=== PATIENT | male | born 1950 ===

== ENCOUNTER 2021-11-20 07:53 | Day surgery (SDC) | payer OTHER ==
[~2021-11-20] VITALS: Ht 172.7 cm; Wt 72.6 kg
[~2021-11-20 07:53] MED LIST: ATORVASTATIN CA40 MG PO; TAMS0.4C PO
== END 2021-11-20 19:20 | disposition home or self-care (01) ==
LOC: CIR.AMB 07:53
PROVIDERS: ATTEND Surgery
DX: K40.20 Bilateral inguinal hernia, without obstruction or gangrene, not specified as recurrent (principal); E78.5 Hyperlipidemia, unspecified; Z86.16 Personal history of COVID-19; Z20.822 Contact with and (suspected) exposure to COVID-19
CPT/HCPCS: 49650; C1781

== ENCOUNTER 2021-11-29 19:07 | Inpatient (IN) | payer OTHER ==
[~2021-11-29] VITALS: Ht 172.7 cm; Wt 72.6 kg
--- NOTE | 2021-11-29 19:35 | NUR ---
SE RECIBE PTE MASCULINO DE 71 ANOS ALERTA Y ORIENTADA X3 PTE REFEIRE BHANU SUFRIDO UN VASOVAGAL EN LA CASA. SE MONITOREAN S/V Y SE UBICA EN CAMA 10. PTE SE OBSERBA CON MORROW PATENTE Y BAJANDO POR GRAVEDAD. PTE SE SHAKILA EKG Y SE MUESTRA A DR [id number].
--- NOTE | 2021-11-29 20:32 | NUR ---
PTE EVALUADO POR MD DUGAN [place] MED A CONTINUAR EN EL HOGAR. SE EDUCA A PTE SOBRE EL MISMO YREFEIRE ENTENDER. SE EJECUTAN ORDENES BAJO MEDIDAS ACEPTICAS. PTE PEND RESULTADOS DE LAB.
--- NOTE | 2021-11-29 22:27 | NUR ---
DR TomasHERNANDEZ [place] MEDICO Y MR [facility] Y MUESTRAS DE LABORATORIO TIFFANY ORDEN MEDICA BAJO MEDIDAS ASEPTICAS. PTE CONSULTADO CON DR CHAN.
[2021-12-05] MEDS ORDERED: INTESTINEX680 M1 PO (10:40)
[2021-12-05] MEDS ORDERED: TAMS0.4C PO (10:40)
[2021-12-05] MEDS ORDERED: LIPITOR40 MG PO (10:40)
[2021-12-05] MEDS ORDERED: LEVOFLOXACIN500 MG PO (10:40)
== END 2021-12-05 12:51 | disposition home or self-care (01) | DRG 727 ==
LOC: ER 19:07 → SEC-K 11-30 01:53 → MEDJ 12-01 11:07 → MEDI 12-03 11:22
PROVIDERS: ADMIT Internal Medicine; ATTEND Internal Medicine
PROC: BW28ZZZ Computerized Tomography (CT Scan) of Head (ICD-10-PCS; 2021-11-29)
PROC: 8E0ZXY6 Isolation (ICD-10-PCS; principal; 2021-11-30)
PROC: BW21ZZZ Computerized Tomography (CT Scan) of Abdomen and Pelvis (ICD-10-PCS; 2021-11-30)
DX: N41.0 Acute prostatitis (principal); U07.1 COVID-19; N39.0 Urinary tract infection, site not specified; R78.81 Bacteremia; N40.1 Benign prostatic hyperplasia with lower urinary tract symptoms; R33.8 Other retention of urine; K59.00 Constipation, unspecified; R55 Syncope and collapse; B95.2 Enterococcus as the cause of diseases classified elsewhere